=== PATIENT | female | born 1955 | race Hispanic/Latino ===

== ENCOUNTER 2017-11-25 10:31 | Outpatient (CLI) | payer OTHER ==
--- NOTE | 2017-11-26 12:00 | Mammography Report ---
BILATERAL DIGITAL SCREENING MAMMOGRAM with CAD: 11/25/17 10:31:00 CLINICAL: Routine screening.Status post bilateral reduction mammoplasty. COMPARISON: None available. FINDINGS: The breasts are mostly fatty with a few bilateral residual fibroglandular densities. Mild bilateral postsurgical scar.No mass, architectural distortion or suspicious calcifications. IMPRESSION: No mammographic evidence of malignancy. BI-RADS CATEGORY: 2 - - Benign RECOMMENDATION: Routine mammographic screening in one year. COMMENT: Patient follow-up letters are generated by our [employer] application.
== END 2017-11-25 10:32 | disposition home or self-care (01) ==
LOC: SPVWC 10:31
PROVIDERS: ATTEND Internal Medicine
DX: Z12.31 Encounter for screening mammogram for malignant neoplasm of breast (principal)
CPT/HCPCS: 77067

== ENCOUNTER 2018-11-28 09:06 | Outpatient (CLI) | payer OTHER ==
--- NOTE | 2018-12-02 14:57 | Mammography Report ---
DIGITAL SCREENING MAMMOGRAM WITH CAD, 11/28/2018 INDICATION: Routine screening mammography. TECHNIQUE: Digital bilateral 2D mammography was obtained in the craniocaudal and mediolateral obliq ue projections. This examination was interpreted with the benefit of Computer-Aided Detection analysi s. COMPARISON: 11/25/2017 FINDINGS: Breast Density: The breasts are almost entirely fatty. There is no evidence of dominant mass, suspicious calcifications or architectural distortion in the l eft breast. A partially circumscribed density is identified far posterior at the inferior aspect of t he pectoral muscle on one of 2 right MLO views. This requires additional evaluation. No architectural distortion or suspicious calcifications. IMPRESSION: Right asymmetry requiring additional imaging. Recommend recall for right exaggerated CC a nd spot compression MLO views and right breast ultrasound if needed. Follow up recommendation: Special View: Spot Category 0: Incomplete. Needs additional imaging evaluation and/or prior mammograms for comparison. A "normal" or negative report should not discourage follow up or biopsy of a clinically significant f inding. A written summary of these findings will be mailed to the patient. The patient will be entered into a mammography reporting system which will generate a reminder letter for the patient's next appointmen t at the appropriate interval. The [employer] recommends yearly mammograms starting at age 40 and continuing as l ana lilia as a woman is in good health. Breast MRI is recommended for women with an approximate 20-25% or greater lifetime risk of breast cancer, including women with a strong family history of breast or ova alma cancer or who have been treated for Hodgkin's disease. Signer Name: Tate Rodriguez MD Signed: 12/02/2018 2:53 PM Workstation Name: [id number]
== END 2018-11-28 09:07 | disposition home or self-care (01) ==
LOC: SPVWC 09:06
PROVIDERS: ATTEND Internal Medicine
DX: Z12.31 Encounter for screening mammogram for malignant neoplasm of breast (principal)
CPT/HCPCS: 77067

== ENCOUNTER 2018-12-22 08:04 | Outpatient (CLI) | payer MEDICARE ==
--- NOTE | 2018-12-22 09:18 | Mammography Report ---
RIGHT DIGITAL DIAGNOSTIC MAMMOGRAM WITH CAD -- 12/22/2018 RIGHT COMPLETE BREAST ULTRASOUND INDICATION: Recalled to evaluate a mammographic asymmetry. TECHNIQUE: Digital right mammographic imaging was performed. Spot compression views were obtained. C omplete ultrasound of all four (4) quadrants was performed. This examination was interpreted with the benefit of Computer-Aided Detection (CAD) analysis. COMPARISON: 11/28/2018 FINDINGS: Breast Density: The breasts are almost entirely fatty. MAMMOGRAPHIC FINDINGS: A far posterior partially circumscribed asymmetry persists on a spot compressi on MLO view. It is not identified on exaggerated CC view. ULTRASOUND FINDINGS: Complete sonographic evaluation of all 4 quadrants and retroareolar region was p erformed. A benign intramammary lymph node is identified at 8:00 14 cm from the nipple. It measures 1.0 x 0.4 x 0.7 cm and correlates with the mammographic density. No mass, cyst or shadowing in the b reast. IMPRESSION: A benign intramammary lymph node at 8:00 14 cm from the nipple. Follow up recommendation: Routine yearly BI-RADS Category 2: Benign. A "normal" or negative report should not discourage follow up or biopsy of a clinically significant f inding. A written summary of these findings will be mailed to the patient. The patient will be entered into a mammography reporting system which will generate a reminder letter for the patient's next appointmen t at the appropriate interval. According to the [employer], yearly mammograms are recommended starting at age 40 and continuing as long as a woman is in good health. Breast MRI is recommended for women with an omar roximately 20-25% or greater lifetime risk of breast cancer, including women with a strong family his tory of breast or ovarian cancer and women who have been treated for Hodgkin's disease. Signer Name: Tate Rodriguez MD Signed: 12/22/2018 9:13 AM Workstation Name: [id number]
== END 2018-12-22 08:05 | disposition home or self-care (01) ==
LOC: SPVWC 08:04
PROVIDERS: ATTEND Internal Medicine
DX: R92.2 Inconclusive mammogram (principal)